=== PATIENT | female | born 1985 | race Asian ===

== ENCOUNTER → 2023-11-12 07:03 | Outpatient (REF) | payer OTHER, SELFPAY | LOC: RCS 07:03 | PROVIDERS: ATTENDING PHYSICIAN Physician Assistant | DX: R07.9 Chest pain, unspecified (principal); M79.602 Pain in left arm; Z82.49 Family history of ischemic heart disease and other diseases of the circulatory system | CPT/HCPCS: 93306 ==

== ENCOUNTER 2023-11-23 17:07 | Emergency (ER) | payer OTHER, SELFPAY ==
[2023-11-23 17:15] VITALS: BP 110/71
[2023-11-23] MEDS: TYLENOL 1000 MG PO (17:25)
[2023-11-23 17:42] LABS: % Basophils 0.2 % (0-2); % Immature Granulocytes 1.3 % (0-0.5); % Lymphocytes 6.4 % (20.5-51.1); % Monocytes 9.4 % (1.7-9.3); % Neutrophils 82.7 % (42.2-75.2); Absolute Basophils 0.1 10^3/uL (0-0.2); Absolute Immature Granulocytes 0.3 10^3/uL (0-0.05); Absolute Lymphocytes 1.4 10^3/uL (1.2-3.4); Absolute Monocytes 2.1 10^3/uL (0.1-0.6); Absolute Neutrophils 18.4 10^3/uL (1.4-6.5); Hematocrit 29.7 % (37.0-47.0); Hemoglobin 10.2 g/dL (12.0-16.0); Mean Corp Hgb Conc. 34.3 g/dL (33.0-37.0); Mean Corpuscular Hgb 27.7 pg (27.0-31.0); Mean Corpuscular Volume 80.7 fL (81.0-99.0); Mean Platelet Volume 9.6 fL (7.4-10.4); Nucleated Red Blood Cells % 0 %; Platelet Count 312 10^3/uL (130-400); Red Blood Cell Count 3.68 10^6/uL (4.20-5.40); Red Cell Dist. Width 13.7 % (11.5-14.5); White Blood Cell Count 22.2 10^3/uL (4.8-10.8)
[2023-11-23 17:50] LABS: HCG, Serum Qualitative Screen Negative
[2023-11-23 18:01] LABS: ALT (SGPT) 105 U/L (0-35); AST (SGOT) 31 U/L (14-36); Albumin 3.6 g/dl (3.5-5.0); Alkaline Phosphatase 278 U/L (38-126); Blood Urea Nitrogen 6 mg/dl (7-17); Calcium 8.8 mg/dl (8.4-10.2); Carbon Dioxide 24 mmol/L (22-30); Chloride 97 mmol/L (98-107); Glucose 130 mg/dl (70-99); Potassium 3.3 mmol/L (3.5-5.1); Sodium 131 mmol/L (135-145); Total Bilirubin 0.7 mg/dl (0.2-1.3); Total Protein 6.5 g/dl (6.3-8.2); eGFR > 60.00
--- NOTE | 2023-11-23 19:57 | ED.GENMED ---
History of Present Illness
General
Chief Complaint: Abdominal Symptoms
Source: patient and spouse
Time Seen by Provider: 11/23/23 19:02
Travel History
Have you had any contact with someone who has COVID-19?: No
Do you have any symptoms of coronavirus? Fever > 100 degrees, chills, cough, shortness of breath, sore throat, loss of taste or smell, muscle aches, or headache?: Yes
Symptoms:: fever
History of Present Illness
History of Present Illness:
38-year-old female presents to the emergency room complaining of nausea, upper abdominal pain, headache which has been present for the past 6 days. Patient first began feeling ill this past Wednesday evening with fever chills. She developed nausea
vomiting and was unable to keep much down due to vomiting. Symptoms persisted through the weekend. She went to an urgent care where she tested positive for influenza. She has been taking Tylenol and ibuprofen for fever and bodyaches. She has
been using these medications once or twice a day. She presents today because the discomfort in her abdomen is persistent as well as the nausea and inability to tolerate much oral intake. She continues to have a fever. Pain is worse with movement.
She does note she feels hungry now.
Phy Exam
Physical Exam
Physical Exam:
General: Awake, Alert, Oriented X3. No acute distress.
Vitals: unremarkable
Head: Atraumatic
Eyes: Pupils equal, EOMI
Throat: Airway intact, no exudates, dry mucosa
Neck: Trachea midline
Lungs: Clear and equal b/l
Heart: Regular rate, no murmurs
Abd: Soft, moderate epigastric and right upper quadrant tenderness, No pulsatile mass
Neuro: Nonfocal
Skin: Warm, dry, no rash
Extremities: pulses equal b/l, no edema
Course
Orders/Labs/Results
Orders:
Orders
11/23/23 17:19
Test Result ONCE
11/23/23 17:22
Acetaminophen [Tylenol] 1,000 mg .ROUTE .STK-MED ONE
11/23/23 17:24
CMP [Comprehensive Metabolic Panel] Urgent
Complete Blood Count/With Diff Urgent
HCG, Serum Qualitative Screen Urgent
Lipase Urgent
Comment: ADD ON
Acetaminophen [Tylenol] 1,000 mg PO NOW STA
11/23/23 19:56
Add On- LAB Urgent
Tests Added?: lipase
0.9% Sodium Chloride 1000 ml [Nss] 1,000 ml IV BOLUS
Ketorolac [Toradol] 15 mg IV NOW STA
Ondansetron Injectable [Zofran] 4 mg IV NOW STA
US Abdomen Complete/Upper Urgent
Comment:
Reason For Exam: ruq/epigastric pain
Abnormal Lab Results
11/23/23
17:24
WBC 22.2 H 10^3/uL
(4.8-10.8)
RBC 3.68 L 10^6/uL
(4.20-5.40)
Hgb 10.2 L g/dL
(12.0-16.0)
Hct 29.7 L %
(37.0-47.0)
MCV 80.7 L fL
(81.0-99.0)
Abs Immat Gran (auto) 0.3 H 10^3/uL
(0-0.05)
Absolute Neuts (auto) 18.4 H 10^3/uL
(1.4-6.5)
Absolute Monos (auto) 2.1 H 10^3/uL
(0.1-0.6)
Immature Gran % 1.3 H %
(0-0.5)
Neutrophils % 82.7 H %
(42.2-75.2)
Lymphocytes % 6.4 L %
(20.5-51.1)
Monocytes % 9.4 H %
(1.7-9.3)
Sodium 131 L mmol/L
(135-145)
Potassium 3.3 L mmol/L
(3.5-5.1)
Chloride 97 L mmol/L
(98-107)
BUN 6 L mg/dl
(7-17)
Creatinine 0.5 L mg/dL
(0.6-1.0)
Glucose 130 H mg/dl
(70-99)
ALT 105 H U/L
(0-35)
Alkaline Phosphatase 278 H U/L
(38-126)
11/23/23 17:24
11/23/23 17:24
Vital Signs
Initial and Last Documented VS:
Initial Vital Signs
Temp Pulse Resp BP Pulse Ox
101.2 F H 108 16 110/71 95
11/23/23 17:15 11/23/23 17:15 11/23/23 17:15 11/23/23 17:15 11/23/23 17:15
Last Documented Vital Signs
Temp Pulse Resp BP Pulse Ox
99.0 F 80 16 112/79 100
11/23/23 22:36 11/23/23 22:36 11/23/23 22:36 11/23/23 22:00 11/23/23 22:36
MDM/Problems Addressed
Differential Diagnosis Includes:
Persistent symptoms from influenza, gastritis, pancreatitis, cholecystitis cholelithiasis
MDM/Problems Addressed:
Patient feels much better after antiemetics and Toradol. Labs show an elevated white blood cell count of 22,000 and a mildly elevated alk phos. Ultrasound was performed which was essentially normal. She does not have any lower abdominal
tenderness to palpation and she is also previously had an appendectomy. My suspicion for intra-abdominal pathology is very low at this point given her benign exam. Suspect she has some abdominal discomfort clinically due to viral illness and
perhaps gastritis from NSAID use. Patient hungry and would like to eat. Stable for discharge. Return improving and the next couple days.
*Radiology
Radiology exam reviewed: radiology read reviewed
*Pulse Oximetry
Patient hypoxic: no
*Critical Care Note
Total Time (30-74mins, 75-104mins- exclusive of procedures): Not Applicable
ED Attending Note
-
Portions of this chart may have been created with voice recognition software.� Occasional wrong word or��sound alike� substitutions may have occurred due to the inherent limitations of voice recognition software.
Discharge Plan
Departure
Patient Disposition: Home (Routine Discharge)
Date of Disposition: 11/23/23
Time of Disposition: 21:53
Patient with high blood pressure during this ER visit?: No
Condition: Good
Discharge Problem:
Influenza
Instructions: Nausea and Vomiting, Adult (DC), Flu, Adult ED
Prescriptions:
New
ondansetron 4 mg tablet,disintegrating
4 mg PO TID PRN (Reason: nausea and vomiting) Qty: 10 0RF
Referrals:
Rory Lyle MD [Family Provider] -
Interventions
Interventions:
*Risk Screen - Suicide Last Done: 11/23/23 22:36
*General Assessment Last Done: 11/23/23 22:02
*Neglect/Abuse Screening Last Done: 11/23/23 22:02
ED- Fall Risk Assessment Last Done: 11/23/23 22:02
*ED COVID-19 Vaccine History Last Done: 11/23/23 17:15
*Nursing Disposition Last Done: 11/23/23 22:36
RU-Qpbsku-Qomrxeomvg Assessment Last Done: 11/23/23 22:01
Discharge Date and Time
Discharge Date/Time: 11/23/23 22:54
[2023-11-23 20:39] LABS: Lipase 66 U/L (23-300)
[2023-11-23] MEDS: NSS 1000 IV (21:08)
[2023-11-23] MEDS: ZOFRAN 4 MG IV (21:09)
[2023-11-23] MEDS: TORADOL 15 MG IV (21:09)
[2023-11-23 21:12] VITALS: BP 116/80
[2023-11-23 22:00] VITALS: BP 112/79
== END 2023-11-23 22:54 | disposition home or self-care (01) ==
LOC: EMR 17:07
PROVIDERS: Emergency Medicine; EMERGENCY PHYSICIAN Emergency Medicine; FAMILY PHYSICIAN Hospitalist
DX: J11.1 Influenza due to unidentified influenza virus with other respiratory manifestations (principal)
CPT/HCPCS: 99284; 96374; 96375; 96361; 76700; 80053; 83690; 84703; 85025

== ENCOUNTER → 2025-08-07 06:37 | Outpatient (REF) | payer OTHER, SELFPAY | LOC: WDC 06:37 | PROVIDERS: ATTENDING PHYSICIAN Hospitalist | DX: Z12.31 Encounter for screening mammogram for malignant neoplasm of breast (principal) | CPT/HCPCS: 77063; 77067 ==

== ENCOUNTER → 2025-08-27 10:03 | Outpatient (REF) | payer OTHER, SELFPAY | LOC: WDC 10:03 | PROVIDERS: ATTENDING PHYSICIAN Hospitalist | DX: R92.8 Other abnormal and inconclusive findings on diagnostic imaging of breast (principal) | CPT/HCPCS: 76642 ==